=== PATIENT | female | born 1985 | race Caucasian/White ===

== ENCOUNTER 2016-09-02 11:56 | Emergency (ER) | payer MEDICAID ==
[~2016-09-02] VITALS: Ht 152.4 cm; Wt 58.0 kg
[2016-09-02 11:59] VITALS: Ht 152.4 cm; Wt 58.0 kg
--- NOTE | 2016-09-02 12:35 | ERD ---
ER Documentation Chief Complaint Date/Time DATE: 09/02/16 TIME: 12:33 Chief Complaint VAG BLEED X 2 DAYS , 6 WEEKS PREG HPI This is a 30-year-old female who presents to the emergency department today complaining of vaginal bleeding for the past 2 days. Patient states that 2 weeks ago she had missed her period and took a home test that was positive. States she took another one today. Denies any fevers or chills or nausea or vomiting. ROS All systems reviewed and are negative except as per history of present illness. Medications Home Meds Active Scripts Acetaminophen* (Tylophen*) 500 Mg Capsule, 1 CAP PO Q6H Y for PAIN AND OR ELEVATED TEMP, #30 CAP Prov:LILLI LOUIS PA-C 09/02/16 Allergies Allergies: Coded Allergies: No Known Drug Allergy (Verified Allergy, Unknown, 09/20/07) PMhx/Soc Medical and Surgical Hx: pt denies Medical Hx, pt denies Surgical Hx Hx Alcohol Use: No Hx Substance Use: No Hx Tobacco Use: No Physical Exam Vitals Vital Signs Date Time Temp Pulse Resp B/P Pulse Ox O2 Delivery O2 Flow Rate FiO2 09/02/16 11:59 98.1 76 18 135/63 98 Physical Exam Const: No acute distress Head: Atraumatic Eyes: Normal Conjunctiva ENT: Normal External Ears, Nose and Mouth. Neck: Full range of motion..~ No meningismus. Resp: Clear to auscultation bilaterally Cardio: Regular rate and rhythm, no murmurs Abd: Soft, mild suprapubic tenderness non distended. Normal bowel sounds. No right lower quadrant pain. No left lower quadrant pain. Skin: No petechiae or rashes Neur: Awake and alert Psych: Normal Mood and Affect Result Diagram: 09/02/16 1330 Results 24 hrs Laboratory Tests Test 09/02/16 13:00 09/02/16 13:30 Urine Bilirubin NEGATIVE Urine Clarity CLEAR Urine Color LT. YELLOW Urine Glucose NEGATIVE% Urine Hemoglobin 3+ Urine Ketones NEGATIVE Urine Leukocyte Esterase NEGATIVE Urine Microscopic RBC 2-5/HPF Urine Microscopic WBC NONE SEEN/HPF Urine Nitrite NEGATIVE Urine Specific [place] <=1.005 Urine Total Protein NEGATIVE Urine Urobilinogen 0.2 E.U./dL Urine pH 6.0 Basophils # 0.010^3/ul Basophils % 0.7% Beta HCG, Quantitative 4469.8mIU/ml Eosinophils # 0.110^3/ul Eosinophils % 2.0% Hematocrit 35.0% Hemoglobin 11.5g/dl Lymphocytes # 1.710^3/ul Lymphocytes % 31.2% Mean Corpuscular Hemoglobin 28.3pg Mean Corpuscular Hemoglobin Concent 32.9g/dl Mean Corpuscular Volume 86.0fl Mean Platelet Volume 10.4fl Monocytes # 0.410^3/ul Monocytes % 7.3% Neutrophils # 3.210^3/ul Neutrophils % 58.6% Nucleated Red Blood Cells # 0.010^3/ul Nucleated Red Blood Cells % 0.0/100WBC Platelet Count 63075^3/UL Red Blood Count 4.0710^6/ul Red Cell Distribution Width 13.6% White Blood Count 5.510^3/ul Patient: DON BARTH : 1985 Age: 30 Sex: F MR #: [id number] DOS: 09/02/16 1231 Ordering MD: LILLI LOUIS PA-C Location: [facility] Room/Bed: PROCEDURE: US OB. CLINICAL INDICATION: Vaginal bleeding in . TECHNIQUE: Transabdominal and endovaginal imaging of the uterus is available for review COMPARISON: None available FINDINGS: No intrauterine is identified. The endometrial stripe is homogeneous and measures 6.1 mm in thickness. There is a 2 cm calcified intramural fibroid within the anterior uterine body. The uterus is retroverted. The right ovary measures 2.5 x 1.0 x 1.4 cm and the left ovary measures 2.0 x 1.4 x 2.0 cm. No adnexal mass is identified. No significant free fluid is noted within the pelvis. IMPRESSION: No intrauterine identified. There are no adnexal masses. Correlation with serial beta HCGs and repeat pelvic ultrasound as clinically indicated, is recommended, as ectopic is not excluded on this examination. RPTAT: HH .Nesha Birmingham MD, MD Date Time Electronically viewed and signed by .Nesha Birmingham MD, MD on 09/02/2016 13 :36 .G/ CC: LILLI LOUIS PA-C Procedures/[facility] This is a 30-year-old female who presented to the emergency department today complaining of vaginal bleeding for the past 2 days. Patient had home positive test that was never confirmed by clinic. I did obtain a urine test here in the emergency department. Urine test was positive and therefore did obtain a complete OB workup. Laboratory work shows no elevated white blood cell count. Her hemoglobin is mildly decreased to 11.5. Her platelets are within normal limits. UA is negative for infection. Beta quant hCG 4469.8 Rh status A + Ultrasound shows no intrauterine . There are no adnexal masses. Correlation with serial beta hCGs and repeat pelvic ultrasound was indicated and recommended as ectopic cannot be excluded. There is a 2 cm calcified intramural fibroid within the anterior uterine body. There is no significant free fluid within the pelvis Given patient's laboratory work and ultrasound that shows no intrauterine or symptoms at this time most consistent with early failed versus ectopic versus early normal . Patient has been instructed to follow-up with a clinic or return to the emergency department in 48 hours for repeat beta quant. I have explained to the patient that she may continue to have vaginal bleeding. Patient states that she feels fine currently. She is hemodynamically stable. Patient understood. Patient declined any pain medication or medication for nausea or vomiting here in the emergency department. I will give her a prescription for Tylenol for home At this time the patient is stable for discharge and outpatient management. Patient should follow up with their PCP in the next 1-2 days. They may return to the emergency department sooner for any persistent or worsening of symptoms. Patient understood and agreed with the plan. Departure Diagnosis: Primary Impression: Vaginal bleeding in patient at less than 20 weeks gestation Condition: Fair LILLI LOUIS PA-C Sep 02, 2016 12:35
[2016-09-02 13:22] LABS: ADD UMIC YES; URINE BILIRUBIN (Dip) NEGATIVE (NEGATIVE); URINE BLOOD (Dip) 3+ (NEGATIVE); URINE COLOR LT. YELLOW (YELLOW); URINE GLUCOSE (Dip) NEGATIVE (NEGATIVE); URINE KETONES (Dip) NEGATIVE (NEGATIVE); URINE LEUKOCYTE ESTERASE (Dip) NEGATIVE (NEGATIVE); URINE NITRITE (Dip) NEGATIVE (NEGATIVE); URINE TOTAL PROTEIN (Dip) NEGATIVE (NEGATIVE); URINE UROBILINOGEN (Dip) 0.2 E.U./dL (0.1-1.0)
[2016-09-02 13:35] LABS: ADD SCAN DIFF NO
--- NOTE | 2016-09-02 13:36 | RADRPT ---
PROCEDURE: US OB. CLINICAL INDICATION: Vaginal bleeding in . TECHNIQUE: Transabdominal and endovaginal imaging of the uterus is available for review COMPARISON: None available FINDINGS: No intrauterine is identified. The endometrial stripe is homogeneous and measures 6.1 mm in thickness. There is a 2 cm calcified intramural fibroid within the anterior uterine body. The u terus is retroverted. The right ovary measures 2.5 x 1.0 x 1.4 cm and the left ovary measures 2.0 x 1.4 x 2.0 cm. No adnexal mass is identified. No significant free fluid is noted within the pelvis . IMPRESSION: No intrauterine identified. There are no adnexal masses. Correlation with serial beta HC Gs and repeat pelvic ultrasound as clinically indicated, is recommended, as ectopic is not excluded on this examination. RPTAT: HH .Nesha Birmingham MD, Date Time Electronically viewed and signed by .Nesha Birmingham MD, on 09/02/2016 13:36 .G/
[2016-09-02 13:38] LABS: BASOPHILS % 0.7 % (0.0-2.0); EOSINOPHILS # 0.1 10^3/ul (0.0-0.5); HEMOGLOBIN 11.5 g/dl (12.0-16.0); LYMPHOCYTES # 1.7 10^3/ul (0.8-2.9); LYMPHOCYTES % 31.2 % (15.0-51.0); MEAN CORPUSCULAR HEMOGLOBIN 28.3 pg (29.0-33.0); MEAN CORPUSCULAR HGB CONC 32.9 g/dl (32.0-37.0); MEAN PLATELET VOLUME 10.4 fl (7.4-10.4); MONOCYTE # 0.4 10^3/ul (0.3-0.9); MONOCYTES % 7.3 % (0.0-11.0); NEUTROPHIL # 3.2 10^3/ul (1.6-7.5); NEUTROPHILS % 58.6 % (39.0-77.0); PLATELET COUNT 285 10^3/UL (140-415); RED BLOOD COUNT 4.07 10^6/ul (4.20-5.40); RED CELL DISTRIBUTION WIDTH 13.6 % (11.5-14.5); WHITE BLOOD COUNT 5.5 10^3/ul (4.8-10.8)
[2016-09-02] MEDS ORDERED: ACET500C5 PO (14:51)
[2016-09-02 15:10] VITALS: BP 131/74; PULSE 72; RESP 18; TEMP 98.3
== END 2016-09-02 15:10 | disposition home or self-care (01) ==
LOC: FTE 11:56
DX: O20.9 Hemorrhage in early pregnancy, unspecified (principal); Z3A.01 Less than 8 weeks gestation of pregnancy
CPT/HCPCS: 36415; 76801; 76817; 81001; 81003; 84702; 85025; 86900; 86901; Z7502

== ENCOUNTER 2016-09-04 09:02 | Emergency (ER) | payer MEDICAID ==
[~2016-09-04] VITALS: Ht 152.4 cm; Wt 58.4 kg
[~2016-09-04 09:02] MED LIST: ACET500C5 PO
[2016-09-04 09:10] VITALS: Ht 152.4 cm; Wt 58.4 kg
--- NOTE | 2016-09-04 10:04 | ERD ---
ER Documentation Chief Complaint Date/Time DATE: 09/04/16 TIME: 10:02 Chief Complaint needs ultrasound and blood work 2 days after vaginal bleeding, . (NELDA MATAMOROS NP) HPI This is a 30-year-old female presenting to the emergency department for repeat ultrasound and blood test for evaluation of her . Patient had vaginal bleeding 2 days ago and was seen here in the ED for evaluation. Patient was told to come back for reevaluation. Patient states bleeding has now stopped. No spotting or any vaginal bleeding. Patient denies pelvic cramping. No dysuria or hematuria. No fevers or chills. Patient is A0. No history of complications with or . Patient does not have an RUG HOOKER at this time. Last menstrual period July 24, 2016 (NELDA MATAMOROS NP) ROS All systems reviewed and are negative except as per history of present illness. (NELDA MATAMOROS NP) Medications Home Meds Discontinued Scripts Acetaminophen* (Tylophen*) 500 Mg Capsule, 1 CAP PO Q6H Y for PAIN AND OR ELEVATED TEMP, #30 CAP Prov:LILLI LOUIS PA-C 09/02/16 Allergies Allergies: Coded Allergies: No Known Drug Allergy (Verified Allergy, Unknown, 09/04/16) PMhx/Soc Medical and Surgical Hx: pt denies Medical Hx, pt denies Surgical Hx Hx Alcohol Use: No Hx Substance Use: No Hx Tobacco Use: No Smoking Status: Never smoker (NELDA MATAMOROS NP) Physical Exam Vitals Vital Signs Date Time Temp Pulse Resp B/P Pulse Ox O2 Delivery O2 Flow Rate FiO2 09/04/16 09:10 97.7 67 20 119/56 99 (LEONARDO BURNS DO) Physical Exam Const: No acute distress, alert, smiling during exam Head: Atraumatic Eyes: Normal Conjunctiva ENT: Normal External Ears, Nose and Mouth. Neck: Full range of motion..~ No meningismus. Resp: Clear to auscultation bilaterally Cardio: Regular rate and rhythm, no murmurs Abd: Soft, non tender, non distended. Normal bowel sounds Skin: No petechiae or rashes Back: No midline or flank tenderness Ext: No cyanosis, or edema Neur: Awake and alert Psych: Normal Mood and Affect (NELDA MATAMOROS NP) Result Diagram: 09/04/16 1012 09/04/16 1012 Results 24 hrs Laboratory Tests Test 09/04/16 10:12 09/04/16 10:23 Alanine Aminotransferase (ALT/SGPT) 28IU/L Albumin 4.2g/dl Albumin/Globulin Ratio 1.16 Alkaline Phosphatase 74IU/L Anion Gap 16 Aspartate Amino Transf (AST/SGOT) 24IU/L Basophils # 0.010^3/ul Basophils % 0.8% Beta HCG, Quantitative 4265.1mIU/ml Blood Urea Nitrogen 11mg/dl Calcium Level 9.4mg/dl Carbon Dioxide Level 29mmol/L Chloride Level 101mmol/L Creatinine 0.47mg/dl Direct Bilirubin 0.00mg/dl Eosinophils # 0.110^3/ul Eosinophils % 2.4% Globulin 3.60g/dl Glucose Level 73mg/dl Hematocrit 38.4% Hemoglobin 12.5g/dl Indirect Bilirubin 0.0mg/dl Lymphocytes # 1.910^3/ul Lymphocytes % 37.9% Mean Corpuscular Hemoglobin 28.2pg Mean Corpuscular Hemoglobin Concent 32.6g/dl Mean Corpuscular Volume 86.7fl Mean Platelet Volume 10.7fl Monocytes # 0.410^3/ul Monocytes % 7.1% Neutrophils # 2.610^3/ul Neutrophils % 51.6% Nucleated Red Blood Cells # 0.010^3/ul Nucleated Red Blood Cells % 0.0/100WBC Platelet Count 33366^3/UL Potassium Level 4.2mmol/L Red Blood Count 4.4310^6/ul Red Cell Distribution Width 13.5% Sodium Level 142mmol/L Total Bilirubin 0.0mg/dl Total Protein 7.8g/dl White Blood Count 5.110^3/ul Bedside Urine Blood 3+ Bedside Urine Glucose (UA) Negative Bedside Urine Ketones (LAB) Negative Bedside Urine Leukocyte Esterase (L Negative Bedside Urine Nitrite (LAB) Negative Bedside Urine Protein (LAB) Negative Bedside Urine pH (LAB) 6.0 Current Medications Medications (Trade) Dose Ordered Sig/Lopez Route PRN Reason Start Time Stop Time Status Last Admin Dose Admin Methotrexate (Methotrexate) 80 mg ONCE ONCE IM 09/04/16 14:30 09/04/16 15:43 DC Methotrexate (Methotrexate) 80 mg ONCE ONCE IM 09/04/16 16:30 09/04/16 16:31 DC 09/04/16 16:52 (LEONARDO BURNS DO) Procedures/MDM ED COURSE: The patient was stable throughout ED course. I kept the patient and/or family informed of laboratory and diagnostic imaging results throughout the ED course. Laboratory CBC no significant anemia or infection Beta-hCG 4265.1 urine dip 3+ blood otherwise negative Imaging OB ultrasound Patient: DON BARTH : 1985 Age: 30 Sex: F MR #: [id number] DOS: 09/04/16 0958 Ordering MD: NELDA MATAMOROS NP Location: [facility]TE Room/Bed: PROCEDURE: US OB. CLINICAL INDICATION: . Vaginal bleeding , beta HCG of 4470/4265. Clinical estimated gestational age is 6 weeks 0 days with estimated date of delivery 04/30/2017. TECHNIQUE: Transabdominal and transvaginal imaging of the gravid uterus was performed. Images are reviewed on a high-resolution PACS workstation. COMPARISON: 09/02/2016 FINDINGS: The uterus is retroverted. No intrauterine is seen. The thickness of the endometrium equals 4.3 mm. Fluid is seen in the endometrial cavity in the lower uterine segment. There is the appearance of a 2.4 x 1.8 x 1.6 cm calcified uterine right fundal intramural fibroid. There is a right adnexal tubal ring mass measuring 2.3 x 1.7 x 2 cm separate from the right ovary suspicious for ectopic . There is a 2.4 x 2 x 2.2 cm left adnexal simple para ovarian cyst apparent. The ovaries are unremarkable. No free intrapelvic fluid is seen. IMPRESSION: No intrauterine is seen. Right adnexal mass suspicious for ectopic . Fluid in endometrial cavity in the lower uterine segment. Consistent with uterine fibroid. Left adnexal paraovarian cyst. Discussed with Dr. House at 12:50 p.m. on 09/04/2016. MDM: 30-year-old female presents emergency department for reevaluation of vaginal bleeding during . Patient states she had vaginal bleeding 2 days ago however none in the past 2 days. Denies pelvic cramping or pain. No dysuria or hematuria. Beta-hCG has decreased from 2 days ago from 4469.8 to today's beta-hCG of 4265.1. No significant anemia or infection. OB ultrasound reviewed by radiologist shows no intrauterine is seen. Right adnexal mass suspicious for ectopic . Fluid in endometrial cavity in the lower uterine segment. Consistent with uterine fibroid. Left adnexal paraovarian cyst. Spoke with Dr. Montejo about patient. Spoke with Dr. Alcantara, laborist, regarding this patient who will examine patient and admit for surgery. Patient will be admitted for ectopic . (NLEDA MATAMOROS NP) Spoke with the labor wrist and he ordered the methotrexate. He states she is a good candidate for it. Her CMP is normal and she was given the injection here ordered by him. She will be discharged home and follow-up with him in 4 days (LEONARDO BURNS DO) Departure Diagnosis: Primary Impression: Ectopic Location of ectopic : unspecified location Intrauterine status: without intrauterine Qualified Code: O00.90 - Ectopic without intrauterine , unspecified location Condition: Fair NELDA MATAMOROS NP Sep 04, 2016 10:04 LEONARDO BURNS DO Sep 04, 2016 17:37
[2016-09-04 10:21] LABS: URINE BLOOD (Dip) POC 3+ (NEGATIVE)
[2016-09-04 10:28] LABS: ADD SCAN DIFF NO
[2016-09-04 10:34] LABS: BASOPHILS % 0.8 % (0.0-2.0); EOSINOPHILS # 0.1 10^3/ul (0.0-0.5); EOSINOPHILS % 2.4 % (0.0-7.0); HEMATOCRIT 38.4 % (37.0-47.0); HEMOGLOBIN 12.5 g/dl (12.0-16.0); LYMPHOCYTES # 1.9 10^3/ul (0.8-2.9); LYMPHOCYTES % 37.9 % (15.0-51.0); MEAN CORPUSCULAR HEMOGLOBIN 28.2 pg (29.0-33.0); MEAN CORPUSCULAR HGB CONC 32.6 g/dl (32.0-37.0); MEAN CORPUSCULAR VOLUME 86.7 fl (82.0-101.0); MEAN PLATELET VOLUME 10.7 fl (7.4-10.4); MONOCYTE # 0.4 10^3/ul (0.3-0.9); MONOCYTES % 7.1 % (0.0-11.0); NEUTROPHIL # 2.6 10^3/ul (1.6-7.5); NEUTROPHILS % 51.6 % (39.0-77.0); PLATELET COUNT 303 10^3/UL (140-415); RED BLOOD COUNT 4.43 10^6/ul (4.20-5.40); RED CELL DISTRIBUTION WIDTH 13.5 % (11.5-14.5); WHITE BLOOD COUNT 5.1 10^3/ul (4.8-10.8)
--- NOTE | 2016-09-04 12:51 | RADRPT ---
PROCEDURE: US OB. CLINICAL INDICATION: . Vaginal bleeding , beta HCG of 4470/4265. Clinical estimated gest ational age is 6 weeks 0 days with estimated date of delivery 04/30/2017. TECHNIQUE: Transabdominal and transvaginal imaging of the gravid uterus was performed. Images are reviewed on a high-resolution PACS workstation. COMPARISON: 09/02/2016 FINDINGS: The uterus is retroverted. No intrauterine is seen. The thickness of the endometrium equ als 4.3 mm. Fluid is seen in the endometrial cavity in the lower uterine segment. There is the appe arance of a 2.4 x 1.8 x 1.6 cm calcified uterine right fundal intramural fibroid. There is a right adnexal tubal ring mass measuring 2.3 x 1.7 x 2 cm separate from the right ovary suspicious for ecto pic . There is a 2.4 x 2 x 2.2 cm left adnexal simple para ovarian cyst apparent. The ovar ies are unremarkable. No free intrapelvic fluid is seen. IMPRESSION: No intrauterine is seen. Right adnexal mass suspicious for ectopic . Fluid in en dometrial cavity in the lower uterine segment. Consistent with uterine fibroid. Left adnexal paraov mp cyst. Discussed with Dr. House at 12:50 p.m. on 09/04/2016. RPTAT: HJES .Magnus Davis MD, MD Date Time Electronically viewed and signed by .Magnus Davis MD, on 09/04/2016 12:51 .S/
[2016-09-04 14:30] LABS: ALBUMIN 4.2 g/dl (3.3-4.9)
[2016-09-04] MEDS ORDERED: METHOTREXATE 50 MG INJ IM ONE ×2 (14:30→16:30)
[2016-09-04 14:31] LABS: POTASSIUM 4.2 mmol/L (3.5-5.1)
[2016-09-04 14:33] LABS: ALBUMIN/GLOBULIN RATIO 1.16; CREATININE 0.47 mg/dl (0.44-1.00); TOTAL PROTEIN 7.8 g/dl (6.1-8.1)
[2016-09-04 14:34] LABS: CALCIUM 9.4 mg/dl (8.4-10.2)
[2016-09-04] MEDS ORDERED: HYDR-906 PO (17:39)
[2016-09-04 17:41] VITALS: BP 115/63; PULSE 76; RESP 20; TEMP 98.4
--- NOTE | 2016-09-04 19:07 | PN ---
DATE: INDICATIONS: The patient is a 30-year-old G3, P2, presents at approximately 6 weeks gestation. Pat ient here for follow up for rule out ectopic . Last menstrual period was 07/24/2016. Kelly peña is here for followup 48 hours later as on her previous visit in the emergency room complaining o f spotting, patient was found to have a quant of 4400. Ultrasound negative for intrauterine pregnan cy. No masses were found at that time. Patient returns today for followup. The hCG has gone down to 4200. Ultrasound today reveals a suspicious mass in the right adnexa approximately 2.5 cm suspic ious for ectopic . No intrauterine is observed. Again, the hCG has gone down. P atient currently stable, not complaining of abdominal pain, and some only minimal spotting. PAST MEDICAL HISTORY: None. PAST SURGICAL HISTORY: x2. MEDICATIONS: None. PHYSICAL EXAMINATION: Vital signs are within normal limits. Exam within normal limits. ABDOMEN: Soft, nontender. ASSESSMENT: This is a right ectopic . Patient currently stable. The mass is 2.5 cm; hCG is 4200. Patient was given options of surgical management versus medical management. The patient d ecided for medical management with methotrexate. Approximately 85 to 90% success rate was discussed , and the possibility of surgical management due to rupture discussed with the patient. I explained that the patient needs follow up until the hCG has gone down to 0. Patient understood. Methotrex ate will be given 50 mg per pharmacy dose, and patient ER precautions given. Patient to return in 4 days for repeat and also in 7 days for repeat hCG. Patient also in the meantime instructed to find an BEE FARMER, or to follow up with her own BEE FARMER, for long-term follow up of the hCGs. Patient under stood the risks. All questions were answered, and patient will be given a dose of methotrexate and will follow up in 4 days. Dictated By: ADRYAN FALCON MD /WALDO Conf#: [id number] DID#: [id number]
== END 2016-09-04 18:04 | disposition home or self-care (01) ==
LOC: FTE 09:02 → E/R 18:04
DX: O00.90 Unspecified ectopic pregnancy without intrauterine pregnancy (principal)
CPT/HCPCS: 36415; 76801; 76817; 80053; 81003; 84702; 85025; 96372; J9260; Z7502